=== PATIENT | male | born 1960 | race Caucasian/White ===

== ENCOUNTER → 2021-08-15 | Day surgery (SDC) | payer OTHER ==
[~2021-08-15] VITALS: Ht 165.1 cm; Wt 83.5 kg
[~2021-08-15] MED LIST: ALOGLIPTIN25 MG PO; ASPIRIN81 M1 PO; CARAFATE1 G1 PO; CITALOPRAM20 MG PO; Depakote500 MG PO; JARDIANCE25 MG PO; LIPITOR20 MG PO; METFORMIN HYD1000 MG PO; PROTONIX IV40 MG PO; TRAZODONE50 MG PO; VITAMIN D350 MC3 PO; ZETIA10 MG PO
[2021-08-15 08:48] VITALS: BP 157/77
[2021-08-15 09:09] VITALS: BP 115/71
[2021-08-15 09:24] VITALS: BP 130/77
[2021-08-15 09:39] VITALS: BP 142/79
== END | disposition home or self-care (01) ==
LOC: SDC 08-11 11:00
PROVIDERS: ATTEND Surgery
DX: K21.9 Gastro-esophageal reflux disease without esophagitis (principal); K44.9 Diaphragmatic hernia without obstruction or gangrene; K29.50 Unspecified chronic gastritis without bleeding; F41.9 Anxiety disorder, unspecified; F32.9 Major depressive disorder, single episode, unspecified; I10 Essential (primary) hypertension; E11.9 Type 2 diabetes mellitus without complications; Z20.822 Contact with and (suspected) exposure to COVID-19; Z79.899 Other long term (current) drug therapy